=== PATIENT | female | born 1975 | race Caucasian/White ===

== ENCOUNTER 2022-01-24 10:24 | Inpatient (IN) | payer BC, OTHER ==
[2022-01-24 10:48] VITALS: TEMP 98.1; BMI 24.9
[2022-01-24] MEDS ORDERED: ACETAMINOPHEN 325 MG TABLET (FP) PO ONE (11:44)
[2022-01-24] MEDS ORDERED: ACETAMINOPHEN 325 MG TABLET (FP) ONE (11:52)
[2022-01-24 12:08] LABS: BASO % 0.4 % (0-2.0); EOS % 2.1 % (0-4.5); HEMATOCRIT 36.4 % (32.4-45.2); HEMOGLOBIN 12.3 GM/dL (10.7-15.3); LYMPH % 16.7 % (8-40); MCH 29.9 pg (25.7-33.7); MCHC 33.7 g/dl (32.0-36.0); MEAN CELL VOLUME 88.6 fl (80-96); MEAN PLT VOLUME 9.6 fl (7.5-11.1); MONO % 8.5 % (3.8-10.2); NEUT % 72.3 % (42.8-82.8); PLATELET COUNT 214 10^3/uL (134-434); RDW 14.3 % (11.6-15.6); WHITE BLOOD COUNT 13.3 K/mm3 (4.0-10.0)
[2022-01-24 12:16] LABS: INR 1.09 (0.83-1.09); PROTHROMBIN TIME (PATIENT) 12.5 SEC (9.7-13.0)
[2022-01-24 12:19] LABS: ACTIVATED PTT 34.9 SECONDS (25.2-36.5)
[2022-01-24 12:37] LABS: CALCIUM 9.2 mg/dL (8.5-10.1)
[2022-01-24 12:38] LABS: ALBUMIN 3.5 g/dl (3.4-5.0); BLOOD UREA NITROGEN 20.6 mg/dL (7-18)
[2022-01-24 12:43] LABS: BILIRUBIN,TOTAL 0.3 mg/dL (0.2-1); TOT PROT 7.2 g/dl (6.4-8.2)
[2022-01-24] MEDS ORDERED: VANCOMYCIN 1 GM in D5W (PRE-DOCKED) 1,000 MG/250 ML IVPB ONE (13:49)
[2022-01-24] MEDS ORDERED: VANCOMYCIN 1 GRAM (PRE-DOCKED) 1,000 MG/250 ML BAG IVPB ONE (14:16)
[2022-01-24 18:07] VITALS: BP 140/90; PULSE 80
== END 2022-01-24 17:57 | disposition home or self-care (01) | DRG 601 ==
LOC: JER 10:24 → JERBED 14:53
PROVIDERS: ADMIT Internal Medicine; ATTEND Internal Medicine
PROC: 0H9U3ZZ Drainage of Left Breast, Percutaneous Approach (ICD-10-PCS; principal; 2022-01-24)
DX: N61.1 Abscess of the breast and nipple (principal); F17.210 Nicotine dependence, cigarettes, uncomplicated
CPT/HCPCS: 36415; 76642-TC-LT; 76942-TC; 80053; 85025; 85610; 85730; 86850; 86900; 86901; 87070; 87075; 87076; 87077; 87205; 88108; 88305-TC; 99285-25; C9803-CS; U0003; U0005